=== PATIENT | female | born 1955 | race Caucasian/White ===

== ENCOUNTER → 2016-04-07 | Outpatient (CLI) | payer BC ==
[~2016-04-07] MED LIST: ALBUAER19 INH; ALD2525 PO; CHOL100010 PO; CYAN500S PO; DEXL30CA5 PO; DEXL60CA4 PO; GLC/500 PO; HYDR-5688 PO; HYDR25TA4 PO; INSU1.2I SQ; LOSA1TAB38 PO; LPT/40 PO; MULT-506 PO; NVLGIPEN SQ; NXM/40 PO; POTA10CA28 PO
[2016-04-07 17:17] LABS: BLOOD UREA NITROGEN 17 mg/dl (7-18); BUN/CREATININE RATIO 20.4 (10-20); CALCIUM 9.4 mg/dl (8.5-10.1); CARBON DIOXIDE 23 mmol/L (21-32); CHLORIDE 107 mmol/L (98-107); CREATININE 0.85 mg/dl (0.60-1.20); GLUCOSE 76 mg/dl (70-99); POTASSIUM 3.6 mmol/L (3.5-5.1); SODIUM 142 mmol/L (136-145)
== END | disposition home or self-care (01) ==
LOC: C.LABBFT 12:09
PROVIDERS: ATTEND Nurse Practitioner Adult Health
DX: I10 Essential (primary) hypertension (principal)

== ENCOUNTER → 2016-05-17 | Outpatient (CLI) | payer BC ==
--- NOTE | 2016-05-18 08:01 | MAMMOGRAPHY REPORT ---
BILATERAL DIGITAL SCREENING MAMMOGRAM TOMOSYNTHESIS WITH CAD: 05/17/2016 CLINICAL HISTORY: Routine screening. Patient has no complaints. TECHNIQUE: Breast tomosynthesis in addition to standard 2D mammography was performed. Current study was also evaluated with a Computer Aided Detection (CAD) system. COMPARISON: Comparison is made to exams dated: 05/15/2015 mammogram, 04/12/2013 mammogram, 04/15/2014 ma mmogram, 04/11/2012 mammogram, 04/07/2011 mammogram, and 10/01/2010 mammogram - [facility] enter. BREAST COMPOSITION: There are scattered areas of fibroglandular density in both breasts. FINDINGS: There is evidence of prior reduction mammoplasty. There are stable asymmetries bilaterall y. Scattered benign-appearing round and rim calcifications in the breasts. No suspicious mass, arc hitectural distortion or cluster of suspicious microcalcifications is seen. IMPRESSION: ACR BI-RADS CATEGORY 1: NEGATIVE There is no mammographic evidence of malignancy. A 1 year screening mammogram is recommended. The p atient will receive written notification of the results. Approximately 10% of breast cancers are not detected with mammography. A negative mammographic repor t should not delay biopsy if a clinically suggestive mass is present. Jolene Reynolds M.D. ay/:05/17/2016 22:46:45 [employer] Alarm Mechanic: Inga GUPTA(Andres)(M), [facility] letter sent: Normal 1/2 BI-RADS Code: ACR BI-RADS Category 1: Negative
== END | disposition home or self-care (01) ==
LOC: C.MAMM 09:07
PROVIDERS: ATTEND Internal Medicine
DX: Z12.31 Encounter for screening mammogram for malignant neoplasm of breast (principal)

== ENCOUNTER → 2016-05-20 | Outpatient (CLI) | payer BC ==
[2016-05-20 18:09] LABS: BLOOD UREA NITROGEN 22 mg/dl (7-18); BUN/CREATININE RATIO 25.5 (10-20); CALCIUM 9.3 mg/dl (8.5-10.1); CARBON DIOXIDE 24 mmol/L (21-32); CHLORIDE 107 mmol/L (98-107); CREATININE 0.88 mg/dl (0.60-1.20); GLUCOSE 74 mg/dl (70-99); POTASSIUM 3.5 mmol/L (3.5-5.1); SODIUM 143 mmol/L (136-145)
== END | disposition home or self-care (01) ==
LOC: C.LABBFT 11:50
PROVIDERS: ATTEND Nurse Practitioner Adult Health
DX: I10 Essential (primary) hypertension (principal)

== ENCOUNTER → 2016-07-05 | Outpatient (CLI) | payer BC ==
--- NOTE | 2016-07-05 09:40 | DIAGNOSTIC IMAGING REPORT ---
EXAMINATION: RENAL ULTRASOUND CLINICAL HISTORY: R31.9 [id number] Angiomyolipoma of [id number] COMPARISON STUDY: 06/17/2014 FINDINGS: The right kidney measures 11.1 cm. The left kidney measures 10.9 cm. There is no evidence of hydronephrosis. There is an 11 mm echogenic cortical mass arising from the upper pole the left kidney. This remains unchanged in size. A prior CT scan indicated this represents an angiomyolipoma. No bladder abnormalities are visualized. Bilateral ureteral jets were visualized. 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 07/05/2016 9:38 AM Dictated Date/Time: 07/05/2016 9:36 AM
== END | disposition home or self-care (01) ==
LOC: C.ULTR 08:51
PROVIDERS: ATTEND Urology
DX: D17.71 Benign lipomatous neoplasm of kidney (principal); R31.9 Hematuria, unspecified

== ENCOUNTER → 2016-07-30 | Day surgery (SDC) | payer BC ==
[2016-07-05 13:22] VITALS: Ht 154.9 cm; Wt 96.8 kg
[~2016-07-30] VITALS: Ht 154.9 cm; Wt 96.8 kg
[~2016-07-30] MED LIST changes: -ALD2525 PO; +LIDOCAINE HCL 2% 2 ML VIAL (20MG/ML) ONE; +MIDAZOLAM HCL 1 MG/ML 2ML VIAL ONE; +ONDANSETRON INJ 2 MG/ML 2 ML VIAL ONE; +PROPOFOL IV EMULSION 10 MG/ML 20 ML VIAL IV ONE; +SODIUM CHLORIDE 0.9% 500ML 500 ML IV ONE
[2016-07-30 09:29] VITALS: TEMP 36.7
--- NOTE | 2016-07-30 09:48 | Endo History and Physical ---
History & Physical Date of Service: July 30, 2016. Chief Complaint: SCREENING Referring Physician: DR DEAN History of Present Illness 60 yo CF who presents for screening colonoscopy. Past Surgical History Hx Cardiac Surgery: No Hx Internal Defibrillator: No Hx Pacemaker: No Hx Abdominal Surgery: Yes (VAGINAL POLYP REMOVAL, ) Hx of Implantable Prosthesis: No Hx Post-Op Nausea and Vomiting: No Hx Cancer Surgery: No Hx Thoracic Surgery: No Hx Orthopedic: Yes (RT GANGLION CYST X3, LT BROKEN ANKLE SURGERY WITH HARDWARE , LT KNEE SCOPE) Hx Urinary Tract Surgery: No Family History None Social History Smoking Status: Never Smoker Hx Substance Use: No Hx Alcohol Use: Yes (RARELY) Allergies Coded Allergies: Iodine (Verified Allergy, Severe, "LOST PULSE AND BP FOR 2 MINUTES", ) CONTRAST MEDIA Alendronate (Verified Allergy, Unknown, SEVERE ABDOMINAL PAIN, 07/30/16) Sulfa Drugs (Verified Allergy, Unknown, RASH, 07/30/16) Current Medications Reported Home Medications Medications Dose Route/Sig Max Daily Dose Days Date Category Dose Instructions Hctz (Hydrochlorothiazide) 25 Mg Tab 25 Mg PO QAM 07/05/16 Reported Toujeo Solostar (Insulin Glargine) 300 Unit/Ml Inj 17 Unit SQ QAM 07/05/16 Reported Novolog Flexpen (Insulin Aspart) 100 Units/Ml Inj 1 Dose SQ QID 07/05/16 Reported SLIDING SCALE COVERAGE Cozaar (Losartan Potassium) 100 Mg Tab 50 Mg PO QAM 07/05/16 Reported Lipitor (Atorvastatin) 40 Mg Tab 40 Mg PO HS 11/19/15 Reported Nexium (Esomeprazole Magnesium) 40 Mg Capcr 40 Mg PO QAM 02/07/13 Reported TAKE 1/2 HOUR PRIOR TO BREAKFAST. Multivitamin (Multivitamins) Tab 1 Tab PO QAM 02/07/13 Reported Vitamin D (Cholecalciferol) 1,000 Inter.unit Tab 1,000 Inter.unit PO QAM 02/07/13 Reported Glucophage (Metformin Hcl) 500 Mg Tab 500 Mg PO BID 02/07/13 Reported B-12 Dots (Cyanocobalamin) 500 Mcg Tab 500 Mcg PO QAM 02/07/13 Reported Ventolin Inhaler (Albuterol) Aers 2 Puffs INH Q4 PRN 09/09/11 Reported Vital Signs Weight (Kilograms): 96.82 Height (Feet): 5 Height (Inches): 1 Date Time Temp Pulse Resp B/P Pulse Ox O2 Delivery O2 Flow Rate FiO2 07/30/16 09:29 36.7 68 18 191/88 95 Room Air Physical Exam General Appearance: WD/WN, no apparent distress Respiratory/Chest: Auscultation: breath sounds normal Cardiovascular: Heart Auscultation: RRR Abdomen: Bowel Sounds: normal Inspection & Palpation: soft, non-distended, no tenderness, guarding & rebound Assessment and Plan Assessment: 60 yo CF who presents for screening colonoscopy. Plan: Proceed with colonoscopy.
--- NOTE | 2016-07-30 10:45 | GI REPORT ---
Procedure Date: 07/30/2016 9:52 AM Procedure: Colonoscopy Indications: Screening for colorectal malignant neoplasm Medicines: Monitored Anesthesia Care Complications: No immediate complications. Estimated Blood Loss: Estimated blood loss: none. Procedure: Pre-Anesthesia Assessment: - Prior to the procedure, a History and Physical was performed, and patient medications and allergies were reviewed. The patient's tolerance of previous anesthesia was also reviewed. The risks and benefits of the procedure and the sedation options and risks were discussed with the patient. All questions were answered, and informed consent was obtained. Prior Anticoagulants: The patient has taken no previous anticoagulant or antiplatelet agents. ASA Grade Assessment: II - A patient with mild systemic disease. After reviewing the risks and benefits, the patient was deemed in satisfactory condition to undergo the procedure. After I obtained informed consent, the scope was passed under direct vision. Throughout the procedure, the patient's blood pressure, pulse, and oxygen saturations were monitored continuously. The Scope was introduced through the anus and advanced to the terminal ileum. The colonoscopy was performed without difficulty. The patient tolerated the procedure well. The quality of the bowel preparation was good. The terminal ileum, ileocecal valve, appendiceal orifice, and rectum were photographed. Findings: A 6 mm polyp was found in the ascending colon. The polyp was pedunculated. The polyp was removed with a hot snare. Resection and retrieval were complete. To prevent bleeding after the polypectomy, two hemostatic clips were successfully placed (MR conditional). There was no bleeding at the end of the procedure. Non-bleeding internal hemorrhoids were found during retroflexion. The hemorrhoids were small. Impression: - One 6 mm polyp in the ascending colon, removed with a hot snare. Resected and retrieved. Clips (MR conditional) were placed. - Non-bleeding internal hemorrhoids. Recommendation: - Resume previous diet. - Continue present medications. - Repeat colonoscopy for surveillance based on pathology results. - Return to primary care physician as previously scheduled. Isai Li, DO 07/30/2016 10:44:38 AM This report has been signed electronically. Note Initiated On: 07/30/2016 9:52 AM I attest to the content of the Intraoperative Record and orders documented therein, exceptions below
--- NOTE | 2016-07-30 10:45 | Discharge Instructions ---
Endoscopy Patient Instructions Date / Procedure(s) Performed July 30, 2016. Colonoscopy Allergy Information Coded Allergies: Iodine (Verified Allergy, Severe, "LOST PULSE AND BP FOR 2 MINUTES", ) CONTRAST MEDIA Alendronate (Verified Allergy, Unknown, SEVERE ABDOMINAL PAIN, 07/30/16) Sulfa Drugs (Verified Allergy, Unknown, RASH, 07/30/16) Discharge Date / Findings July 30, 2016. Colon polyp Internal hemorrhoids Medication Instructions OK to resume all medications today as prescribed Reported Home Medications Medications Dose Route/Sig Max Daily Dose Days Date Category Dose Instructions Hctz (Hydrochlorothiazide) 25 Mg Tab 25 Mg PO QAM 07/05/16 Reported Toujeo Solostar (Insulin Glargine) 300 Unit/Ml Inj 17 Unit SQ QAM 07/05/16 Reported Novolog Flexpen (Insulin Aspart) 100 Units/Ml Inj 1 Dose SQ QID 07/05/16 Reported SLIDING SCALE COVERAGE Cozaar (Losartan Potassium) 100 Mg Tab 50 Mg PO QAM 07/05/16 Reported Lipitor (Atorvastatin) 40 Mg Tab 40 Mg PO HS 11/19/15 Reported Nexium (Esomeprazole Magnesium) 40 Mg Capcr 40 Mg PO QAM 02/07/13 Reported TAKE 1/2 HOUR PRIOR TO BREAKFAST. Multivitamin (Multivitamins) Tab 1 Tab PO QAM 02/07/13 Reported Vitamin D (Cholecalciferol) 1,000 Inter.unit Tab 1,000 Inter.unit PO QAM 02/07/13 Reported Glucophage (Metformin Hcl) 500 Mg Tab 500 Mg PO BID 02/07/13 Reported B-12 Dots (Cyanocobalamin) 500 Mcg Tab 500 Mcg PO QAM 02/07/13 Reported Ventolin Inhaler (Albuterol) Aers 2 Puffs INH Q4 PRN 09/09/11 Reported Provider Instructions Activity Restrictions - No exercising or heavy lifting for 24 hours. - Do not drink alcohol the day of the procedure. - Do not drive a car or operate machinery until the day after the procedure. - Do not make any important decisions or sign important papers in 24 hours after the procedure. Following Day: - Return to full activity which may include returning to work/school. Diet Start your diet with liquids and light foods (jello, soup, juice, toast). Then eat your usual diet if not nauseated. Treatment For Common After Affects For mild abdominal pain, bloating, or excessive gas: - Rest - Eat lightly - Lie on right side Follow-Up Information Follow-up with DR DEAN as scheduled Anesthesia Information What You Should Know You have had a procedure that required some medicine to reduce anxiety and discomfort. This treatment is called moderate sedation. After receiving the treatment, you may be sleepy, but you will be able to breathe on your own. The effects of the treatment may last for several hours. Follow these instructions along with Activity/Diet recommendations noted above: * Do NOT do anything where dizziness or clumsiness would be dangerous. * Rest quietly at home today, then you can be up and about tomorrow. * Have a responsible person stay with you the rest of today. * You may have had an I.V. today. If so, you may take the dressing off later today. Recommendations Call your doctor if: * Trouble breathing * Continuous vomiting for more than 24 hours * Temperature above 101 degrees * Severe abdominal pain or bloating * Pain not relieved by pain medicine ordered * There is increased drainage or redness from any incision * A large amount of rectal bleeding greater than 2-3 tablespoons. (If you had a polyp/s removed or have hemorrhoids, a small amount of blood - from the rectum is to be expected.) * You have any unanswered questions or concerns. IN THE EVENT OF A SERIOUS EMERGENCY, GO TO THE NEAREST EMERGENCY ROOM Your discharge instructions were prepared by provider Isai Li. Patient Instructions Signature Page Vero Recinos Patient (or Guardian) Signature/Date: I have read and understand the instructions given to me by my caregivers. Caregiver/RN/Doctor Signature/Date: The above-named patient and/or guardian has received patient instructions on this date. + Original Patient Signature Page (only) stays with chart. Please make copy for patient.
[2016-07-30 11:08] VITALS: BP 144/94; PULSE 62; O2SAT 100
--- NOTE | 2016-07-30 13:41 | Anesthesiology Progress Note ---
Anesthesia Post Op Note Date & Time July 30, 2016 at 13:41 Vital Signs Pain Intensity: 0 Vital Signs Past 12 Hours Date Time Temp Pulse Resp B/P Pulse Ox O2 Delivery O2 Flow Rate FiO2 07/30/16 11:08 62 20 144/94 100 Room Air 07/30/16 10:54 68 18 145/68 99 Room Air 07/30/16 10:39 64 18 113/59 99 Room Air 07/30/16 09:29 36.7 68 18 191/88 95 Room Air Notes Mental Status: alert / awake / arousable, participated in evaluation Pt Amnestic to Procedure: Yes Nausea / Vomiting: adequately controlled Pain: adequately controlled Airway Patency, RR, SpO2: stable & adequate BP & HR: stable & adequate Hydration State: stable & adequate Anesthetic Complications: no major complications apparent
== END | disposition home or self-care (01) ==
LOC: C.GI 08:47
PROVIDERS: ATTEND Internal Medicine
DX: Z12.11 Encounter for screening for malignant neoplasm of colon (principal); D12.2 Benign neoplasm of ascending colon; K64.8 Other hemorrhoids; Z79.4 Long term (current) use of insulin; Z79.899 Other long term (current) drug therapy

== ENCOUNTER → 2016-09-17 | Outpatient (CLI) | payer BC ==
[~2016-09-17] MED LIST changes: -LIDOCAINE HCL 2% 2 ML VIAL (20MG/ML) ONE; -MIDAZOLAM HCL 1 MG/ML 2ML VIAL ONE; -ONDANSETRON INJ 2 MG/ML 2 ML VIAL ONE; -PROPOFOL IV EMULSION 10 MG/ML 20 ML VIAL IV ONE; -SODIUM CHLORIDE 0.9% 500ML 500 ML IV ONE
[2016-09-17 17:22] LABS: HEMATOCRIT 38.5 % (37-47); MEAN CELL VOLUME 88.7 fL (80-100); MEAN CORPUSCULAR HEMOGLOBIN 29.7 pg (25-34); MEAN CORPUSCULAR HGB CONC 33.5 g/dl (32-36); MEAN PLATELET VOLUME 10.4 fL (7.4-10.4); PLATELET COUNT 304 K/uL (130-400); RED BLOOD COUNT 4.34 M/uL (4.2-5.4); WHITE BLOOD COUNT 9.33 K/uL (4.8-10.8)
[2016-09-17 17:52] LABS: ALT/SGPT 29 U/L (12-78); AMYLASE 41 U/L (25-115); AST/SGOT 17 U/L (15-37); BLOOD UREA NITROGEN 26 mg/dl (7-18); BUN/CREATININE RATIO 21.6 (10-20); CALCIUM 9.4 mg/dl (8.5-10.1); CARBON DIOXIDE 31 mmol/L (21-32); CHLORIDE 103 mmol/L (98-107); GLUCOSE 115 mg/dl (70-99); SODIUM 142 mmol/L (136-145)
[2016-09-17 17:54] LABS: ALB/GLOB RATIO 1.1 (0.9-2); ALKALINE PHOSPHATASE 106 U/L (45-117)
== END | disposition home or self-care (01) ==
LOC: C.LAB1850 16:30
PROVIDERS: ATTEND Nurse Practitioner Adult Health
DX: R11.2 Nausea with vomiting, unspecified (principal); E11.9 Type 2 diabetes mellitus without complications; R10.11 Right upper quadrant pain

== ENCOUNTER → 2016-09-29 | Outpatient (CLI) | payer BC ==
--- NOTE | 2016-09-29 09:05 | DIAGNOSTIC IMAGING REPORT ---
GALLBLADDER-ABD LIMITED HISTORY: 60 years Female R11.0 acute nausea COMPARISON: CT abdomen and pelvis 05/09/2013, gallbladder ultrasound 02/26/2014. TECHNIQUE: Multiple real-time sonographic images of the abdominal right upper quadrant were obtained assessing grayscale appearance and color flow. FINDINGS: The imaged pancreas is unremarkable with body and tail secured by bowel gas. The hepatic parenchyma is within normal limits without focal mass identified. No gallbladder wall thickening, shadowing cholelithiasis or pericholecystic fluid collections. Common bile duct is normal, 0.5 cm. The imaged right kidney appears normal without hydronephrosis measuring 10.9 cm. IMPRESSION: Unremarkable right upper quadrant ultrasound without evidence of cholelithiasis, acute cholecystitis or biliary ductal dilatation. The above report was generated using voice recognition software. It may contain grammatical, syntax or spelling errors. Electronically signed by: Fred Rosales M.D. 09/29/2016 9:04 AM Dictated Date/Time: 09/29/2016 9:01 AM
== END | disposition home or self-care (01) ==
LOC: C.ULTR 08:28
PROVIDERS: ATTEND Physician Assistant Medical
DX: R11.0 Nausea (principal)

== ENCOUNTER → 2016-10-22 | Day surgery (SDC) | payer BC ==
[2016-10-11 15:13] VITALS: Ht 154.9 cm; Wt 96.8 kg
[~2016-10-22] VITALS: Ht 154.9 cm; Wt 96.8 kg
[~2016-10-22] MED LIST changes: +LIDOCAINE HCL 2% 2 ML VIAL (20MG/ML) ONE; +PROPOFOL IV EMULSION 10 MG/ML 20 ML VIAL IV ONE; +SODIUM CHLORIDE 0.9% 500ML 500 ML IV ONE
--- NOTE | 2016-10-22 09:25 | Endo History and Physical ---
History & Physical Date of Service: Oct 22, 2016. Chief Complaint: RUQ Abdominal pain Referring Physician: Dr. Cheung History of Present Illness 60 yo CF who presents for EGD secondary to RUQ abdominal pain. Past Surgical History Hx Cardiac Surgery: No Hx Internal Defibrillator: No Hx Pacemaker: No Hx Abdominal Surgery: Yes (VAGINAL POLYP REMOVAL, ) Hx Post-Op Nausea and Vomiting: No Hx Cancer Surgery: No Hx Thoracic Surgery: No Hx Orthopedic: Yes (RT GANGLION CYST X3, LT BROKEN ANKLE SURGERY WITH HARDWARE , LT KNEE SCOPE) Hx Urinary Tract Surgery: No Family History None Social History Smoking Status: Never Smoker Hx Substance Use: No Hx Alcohol Use: Yes (RARELY) Allergies Coded Allergies: Iodine (Verified Allergy, Severe, "LOST PULSE AND BP FOR 2 MINUTES", ) CONTRAST MEDIA Alendronate (Verified Allergy, Unknown, SEVERE ABDOMINAL PAIN, 10/22/16) Sulfa Drugs (Verified Allergy, Unknown, RASH, 10/22/16) Current Medications Reported Home Medications Medications Dose Route/Sig Max Daily Dose Days Date Category Dose Instructions Dexilant (Dexlansoprazole) 30 Mg Cap 1 Tab PO DAILY 10/22/16 Reported Hctz (Hydrochlorothiazide) 25 Mg Tab 25 Mg PO QAM 07/05/16 Reported Toujeo Solostar (Insulin Glargine) 300 Unit/Ml Inj 17 Unit SQ QAM 07/05/16 Reported Novolog Flexpen (Insulin Aspart) 100 Units/Ml Inj 1 Dose SQ QID 07/05/16 Reported SLIDING SCALE COVERAGE Cozaar (Losartan Potassium) 100 Mg Tab 50 Mg PO QAM 07/05/16 Reported Lipitor (Atorvastatin) 40 Mg Tab 40 Mg PO HS 11/19/15 Reported Nexium (Esomeprazole Magnesium) 40 Mg Capcr 40 Mg PO QAM 02/07/13 Reported TAKE 1/2 HOUR PRIOR TO BREAKFAST. Multivitamin (Multivitamins) Tab 1 Tab PO QAM 02/07/13 Reported Vitamin D (Cholecalciferol) 1,000 Inter.unit Tab 1,000 Inter.unit PO QAM 02/07/13 Reported B-12 Dots (Cyanocobalamin) 500 Mcg Tab 500 Mcg PO QAM 02/07/13 Reported Ventolin Inhaler (Albuterol) Aers 2 Puffs INH Q4 PRN 09/09/11 Reported Vital Signs Weight (Kilograms): 96.82 Height (Feet): 5 Height (Inches): 1 Date Time Temp Pulse Resp B/P (MAP) Pulse Ox O2 Delivery O2 Flow Rate FiO2 10/22/16 09:14 36.7 84 18 133/82 (99) 99 Room Air Physical Exam General Appearance: WD/WN, no apparent distress Respiratory/Chest: Auscultation: breath sounds normal Cardiovascular: Heart Auscultation: RRR Abdomen: Bowel Sounds: normal Inspection & Palpation: soft, non-distended, no tenderness, guarding & rebound Assessment and Plan Assessment: 60 yo CF who presents for EGD secondary to RUQ abdominal pain. Plan: Proceed with EGD.
--- NOTE | 2016-10-22 11:37 | Discharge Instructions ---
Endoscopy Patient Instructions Date / Procedure(s) Performed Oct 22, 2016. EGD Allergy Information Coded Allergies: Iodine (Verified Allergy, Severe, "LOST PULSE AND BP FOR 2 MINUTES", ) CONTRAST MEDIA Alendronate (Verified Allergy, Unknown, SEVERE ABDOMINAL PAIN, 10/22/16) Sulfa Drugs (Verified Allergy, Unknown, RASH, 10/22/16) Discharge Date / Findings Oct 22, 2016. Hiatal hernia Gastritis s/p biopsies Medication Instructions OK to resume all medications today as prescribed Reported Home Medications Medications Dose Route/Sig Max Daily Dose Days Date Category Dose Instructions Dexilant (Dexlansoprazole) 30 Mg Cap 1 Tab PO DAILY 10/22/16 Reported Hctz (Hydrochlorothiazide) 25 Mg Tab 25 Mg PO QAM 07/05/16 Reported Toujeo Solostar (Insulin Glargine) 300 Unit/Ml Inj 17 Unit SQ QAM 07/05/16 Reported Novolog Flexpen (Insulin Aspart) 100 Units/Ml Inj 1 Dose SQ QID 07/05/16 Reported SLIDING SCALE COVERAGE Cozaar (Losartan Potassium) 100 Mg Tab 50 Mg PO QAM 07/05/16 Reported Lipitor (Atorvastatin) 40 Mg Tab 40 Mg PO HS 11/19/15 Reported Nexium (Esomeprazole Magnesium) 40 Mg Capcr 40 Mg PO QAM 02/07/13 Reported TAKE 1/2 HOUR PRIOR TO BREAKFAST. Multivitamin (Multivitamins) Tab 1 Tab PO QAM 02/07/13 Reported Vitamin D (Cholecalciferol) 1,000 Inter.unit Tab 1,000 Inter.unit PO QAM 02/07/13 Reported B-12 Dots (Cyanocobalamin) 500 Mcg Tab 500 Mcg PO QAM 02/07/13 Reported Ventolin Inhaler (Albuterol) Aers 2 Puffs INH Q4 PRN 09/09/11 Reported Provider Instructions Activity Restrictions - No exercising or heavy lifting for 24 hours. - Do not drink alcohol the day of the procedure. - Do not drive a car or operate machinery until the day after the procedure. - Do not make any important decisions or sign important papers in 24 hours after the procedure. Following Day: - Return to full activity which may include returning to work/school. Diet Start your diet with liquids and light foods (jello, soup, juice, toast). Then eat your usual diet if not nauseated. Treatment For Common After Affects For mild abdominal pain, bloating, or excessive gas: - Rest - Eat lightly - Lie on right side Follow-Up Information Follow-up with DR. DEAN as scheduled Anesthesia Information What You Should Know You have had a procedure that required some medicine to reduce anxiety and discomfort. This treatment is called moderate sedation. After receiving the treatment, you may be sleepy, but you will be able to breathe on your own. The effects of the treatment may last for several hours. Follow these instructions along with Activity/Diet recommendations noted above: * Do NOT do anything where dizziness or clumsiness would be dangerous. * Rest quietly at home today, then you can be up and about tomorrow. * Have a responsible person stay with you the rest of today. * You may have had an I.V. today. If so, you may take the dressing off later today. Recommendations Call your doctor if: * Trouble breathing * Continuous vomiting for more than 24 hours * Temperature above 101 degrees * Severe abdominal pain or bloating * Pain not relieved by pain medicine ordered * There is increased drainage or redness from any incision * A large amount of rectal bleeding greater than 2-3 tablespoons. (If you had a polyp/s removed or have hemorrhoids, a small amount of blood - from the rectum is to be expected.) * You have any unanswered questions or concerns. IN THE EVENT OF A SERIOUS EMERGENCY, GO TO THE NEAREST EMERGENCY ROOM Your discharge instructions were prepared by provider Isai Li. Patient Instructions Signature Page Vero Recinos Patient (or Guardian) Signature/Date: I have read and understand the instructions given to me by my caregivers. Caregiver/RN/Doctor Signature/Date: The above-named patient and/or guardian has received patient instructions on this date. + Original Patient Signature Page (only) stays with chart. Please make copy for patient.
--- NOTE | 2016-10-22 11:38 | Anesthesiology Progress Note ---
Anesthesia Post Op Note Date & Time Oct 22, 2016 at 11:37 Vital Signs Pain Intensity: 0 Vital Signs Past 12 Hours Date Time Temp Pulse Resp B/P (MAP) Pulse Ox O2 Delivery O2 Flow Rate FiO2 10/22/16 11:32 69 20 127/74 (91) 98 Room Air 10/22/16 11:17 71 20 102/55 (71) 97 Room Air 10/22/16 09:14 36.7 84 18 133/82 (99) 99 Room Air Notes Mental Status: alert / awake / arousable, participated in evaluation Pt Amnestic to Procedure: Yes Nausea / Vomiting: adequately controlled Pain: adequately controlled Airway Patency, RR, SpO2: stable & adequate BP & HR: stable & adequate Hydration State: stable & adequate Anesthetic Complications: no major complications apparent
--- NOTE | 2016-10-22 11:40 | GI REPORT ---
Procedure Date: 10/22/2016 10:58 AM Procedure: Upper GI endoscopy Indications: Abdominal pain in the right upper quadrant Medicines: Monitored Anesthesia Care Complications: No immediate complications. Estimated Blood Loss: Estimated blood loss: none. Procedure: Pre-Anesthesia Assessment: - Prior to the procedure, a History and Physical was performed, and patient medications and allergies were reviewed. The patient's tolerance of previous anesthesia was also reviewed. The risks and benefits of the procedure and the sedation options and risks were discussed with the patient. All questions were answered, and informed consent was obtained. Prior Anticoagulants: The patient has taken no previous anticoagulant or antiplatelet agents. ASA Grade Assessment: II - A patient with mild systemic disease. After reviewing the risks and benefits, the patient was deemed in satisfactory condition to undergo the procedure. After obtaining informed consent, the endoscope was passed under direct vision. Throughout the procedure, the patient's blood pressure, pulse, and oxygen saturations were monitored continuously. The scope was introduced through the mouth, and advanced to the second part of duodenum. The upper GI endoscopy was accomplished without difficulty. The patient tolerated the procedure well. Findings: The esophagus was normal. A small hiatus hernia was present. Localized mild inflammation characterized by erythema was found in the gastric antrum. Biopsies were taken with a cold forceps for histology. The examined duodenum was normal. Impression: - Normal esophagus. - Small hiatus hernia. - Gastritis. Biopsied. - Normal examined duodenum. Recommendation: - Resume previous diet. - Continue present medications. - Await pathology results. - Return to GI office as previously scheduled. Isai iL DO 10/22/2016 11:40:12 AM This report has been signed electronically. Note Initiated On: 10/22/2016 10:58 AM I attest to the content of the Intraoperative Record and orders documented therein, exceptions below
[2016-10-22 11:49] VITALS: BP 136/76; PULSE 66; O2SAT 100
== END | disposition home or self-care (01) ==
LOC: C.GI 08:55
PROVIDERS: ATTEND Internal Medicine
DX: R10.11 Right upper quadrant pain (principal); K29.70 Gastritis, unspecified, without bleeding; J45.909 Unspecified asthma, uncomplicated; G47.33 Obstructive sleep apnea (adult) (pediatric); E11.9 Type 2 diabetes mellitus without complications; E66.9 Obesity, unspecified; K44.9 Diaphragmatic hernia without obstruction or gangrene

== ENCOUNTER → 2016-10-28 | Outpatient (CLI) | payer BC ==
[~2016-10-28] MED LIST changes: -LIDOCAINE HCL 2% 2 ML VIAL (20MG/ML) ONE; -PROPOFOL IV EMULSION 10 MG/ML 20 ML VIAL IV ONE; -SODIUM CHLORIDE 0.9% 500ML 500 ML IV ONE
== END | disposition home or self-care (01) ==
LOC: C.CPL 10:39
PROVIDERS: ATTEND Surgery
DX: R10.11 Right upper quadrant pain (principal)

== ENCOUNTER → 2016-11-01 | Outpatient (CLI) | payer BC ==
[2016-11-01 18:54] LABS: BLOOD UREA NITROGEN 23 mg/dl (7-18); BUN/CREATININE RATIO 22.8 (10-20); CALCIUM 9.2 mg/dl (8.5-10.1); CARBON DIOXIDE 32 mmol/L (21-32); CHLORIDE 105 mmol/L (98-107); GLUCOSE 88 mg/dl (70-99); POTASSIUM 3.3 mmol/L (3.5-5.1); SODIUM 141 mmol/L (136-145)
== END | disposition home or self-care (01) ==
LOC: C.LAB 18:22
PROVIDERS: ATTEND Internal Medicine
DX: I10 Essential (primary) hypertension (principal)

== ENCOUNTER 2016-11-03 05:00 | Observation (INO) | payer BC ==
[2016-10-29 10:30] VITALS: BMI 42.0
[~2016-11-03] VITALS: Ht 154.9 cm; Wt 100.0 kg
[2016-11-03] VITALS (10 sets, daily range): BP systolic 115–160; BP diastolic 67–86; PULSE 50–81; TEMP 36.3–37; O2SAT 94–100; Ht 154.9 cm; Wt 100.0 kg
[~2016-11-03 05:00] MED LIST changes: -DEXL30CA5 PO; -HYDR-5688 PO; -NXM/40 PO; -POTA10CA28 PO
[2016-11-03] MEDS ORDERED: CEFUROXIME IV 1,500 MG in DEXTROSE 5% 100ML IV SCH (06:00)
[2016-11-03] MEDS ORDERED: LACTATED RINGER'S 1000ML 1,000 ML IV SCH ×2 (06:00→07:49)
[2016-11-03] MEDS ORDERED: ROCURONIUM BROMIDE 10 MG/ML 5 ML VIAL IV ONE (06:34)
[2016-11-03] MEDS ORDERED: PROPOFOL IV EMULSION 10 MG/ML 20 ML VIAL IV ONE (06:34)
[2016-11-03] MEDS ORDERED: NEOSTIGMINE METHYLSULFATE 5 MG/5 ML SYR ONE (06:34)
[2016-11-03] MEDS ORDERED: GLYCOPYRROLATE INJ 0.2 MG/ML VIAL ONE (06:34)
[2016-11-03] MEDS ORDERED: LIDOCAINE HCL 2% 2 ML VIAL (20MG/ML) ONE (06:34)
[2016-11-03] MEDS ORDERED: FENTANYL CITRATE INJ 50 MCG/1 ML 2 ML VIAL ONE ×3 (06:35→08:10)
[2016-11-03] MEDS ORDERED: MIDAZOLAM HCL 1 MG/ML 2ML VIAL ONE (06:35)
[2016-11-03] MEDS ORDERED: ONDANSETRON INJ 2 MG/ML 2 ML VIAL ONE (06:36)
[2016-11-03] MEDS ORDERED: DEXAMETHASONE SOD INJ 4 MG/ML VIAL ONE (06:36)
[2016-11-03] MEDS ORDERED: POTA10CA28 PO (06:37)
[2016-11-03] MEDS ORDERED: CONRAY 60% 50 ML VIAL ONE (06:43)
[2016-11-03] MEDS ORDERED: BUPIVACAINE 0.5 % 5 MG/1 ML MPF 30ML VIAL ONE (06:43)
--- NOTE | 2016-11-03 06:47 | History & Physical Bridge Note ---
H&P Re-Evaluation Bridge Note: I have examined the patient, reviewed the History & Physical and in the interval since the performance of the History & Physical I have noted the following changes of clinical significance: No changes noted
[2016-11-03] MEDS ORDERED: ONDANSETRON INJ 2 MG/ML 2 ML VIAL IV PRN ×2 (07:45→08:00)
[2016-11-03] MEDS ORDERED: LABETALOL HCL IV 5 MG/ML 20ML IV PRN (07:45)
[2016-11-03] MEDS ORDERED: EpHEDrine SULFATE INJ 50 MG/ML AMP IV PRN (07:45)
[2016-11-03] MEDS ORDERED: PROMETHAZINE HCL INJ 12.5 MG in SODIUM CHLORIDE 0.9% 50ML 50 ML IV PRN ×2 (07:45→09:30)
[2016-11-03] MEDS ORDERED: FENTANYL CITRATE INJ 50 MCG/1 ML 2 ML VIAL IV PRN (07:45)
[2016-11-03] MEDS ORDERED: ATROPINE SULFATE 0.1 MG/ML 5ML SYR IV PRN (07:45)
[2016-11-03] MEDS ORDERED: FLUMAZENIL 0.1 MG/1 ML 10 ML VIAL IV PRN (07:45)
[2016-11-03] MEDS ORDERED: NALOXONE HCL 0.4 MG/1 ML VIAL/CARP IV PRN (07:45)
--- NOTE | 2016-11-03 07:49 | [facility] Operative Report ---
Operative Report Operative Date Nov 03, 2016. Pre-Operative Diagnosis Biliary Colic Post-Operative Diagnosis same as pre-operative Procedure(s) Performed Laparoscopic Cholecystectomy Surgeon Dr. Yassine Nava Shrimp Picker Surgeon(s) Shubham Levine PA-C Estimated Blood Loss 5ml Findings very small cystic duct Specimens A: Gallbladder and contents Anesthesia gen Complication(s) None Disposition Recovery Room / PACU I attest to the content of the Intraoperative Record and any orders documented therein. Any exceptions are noted below.
[2016-11-03] MEDS ORDERED: ALBUTEROL HFA 8 GM INHALER INH PRN (08:00)
[2016-11-03] MEDS ORDERED: MoRPHine SULFATE 2 MG/ML CARP IV PRN (08:00)
[2016-11-03] MEDS ORDERED: HYDROCODONE/ACETAMOPHEN 5/325MG TAB PO PRN ×2 (08:00)
[2016-11-03] MEDS ORDERED: MoRPHine SULFATE 4 MG/ML 1 ML CARP\\VIAL IV PRN (08:00)
[2016-11-03] MEDS ORDERED: PROMETHAZINE HCL INJ 25 MG in SODIUM CHLORIDE 0.9% 50ML 50 ML IV PRN (08:00)
--- NOTE | 2016-11-03 08:01 | OPERATIVE REPORT ---
DATE OF OPERATION: 11/03/2016 NAME OF OPERATION: Laparoscopic cholecystectomy. PREOPERATIVE DIAGNOSIS: Biliary colic. POSTOPERATIVE DIAGNOSIS: Same. STAFF SURGEON: Dr. Nava. PROGRAM PROJECT MANAGER: Logan Levine PA-C. ANESTHESIA: General. PROCEDURE: The patient was brought in the operating room and placed on the operating table in supine position. Her abdomen was prepped and draped in usual fashion. Pneumatic stockings and orogastric tube were placed. Using 0.5% plain Marcaine all incisions were anesthetized. Incision was made above the umbilicus, carrying dissection down to the fascia, placing a Veress needle producing pneumoperitoneum. An 11 mm port was placed at the umbilicus. Then under visualization, three 5 mm ports were placed, 1 cephalad and 2 laterally. Gallbladder was grasped and retracted. Dissection was carried out at the senthil hepatis identifying a very small narrow cystic duct which was clipped and transected. Cystic artery identified, clipped and transected, then the gallbladder dissected away from the liver bed in the usual fashion. After appropriate hemostasis and irrigation, the gallbladder was placed in an Endobag removed through the umbilical site. All ports were then removed. The umbilical fascia closed using interrupted 0 Vicryl suture. Subcutaneous tissue reapproximated using 2-0 plain catgut suture then the skin reapproximated using subcuticular 4-0 Monocryl and Dermabond. The patient was transferred to recovery room in stable condition. I attest to the content of the Intraoperative Record and any orders documented therein. Any exception s are noted below.
[2016-11-03] MEDS ORDERED: IV FLUIDS COMPLETED PRN (08:30)
--- NOTE | 2016-11-03 08:53 | Anesthesiology Progress Note ---
Anesthesia Post Op Note Date & Time Nov 03, 2016 at 08:53 Vital Signs Pain Intensity: 2 Vital Signs Past 12 Hours Date Time Temp Pulse Resp B/P (MAP) Pulse Ox O2 Delivery O2 Flow Rate FiO2 11/03/16 08:46 144/76 11/03/16 08:42 50 12 11/03/16 08:42 51 12 100 11/03/16 08:41 135/72 11/03/16 08:37 50 15 11/03/16 08:37 49 15 100 11/03/16 08:36 166/75 11/03/16 08:33 63 18 98 11/03/16 08:33 62 18 11/03/16 08:31 36.4 11/03/16 08:31 147/85 11/03/16 08:28 53 16 100 11/03/16 08:28 54 16 11/03/16 08:27 63 15 11/03/16 08:27 64 15 96 11/03/16 08:26 166/81 11/03/16 08:22 52 13 100 11/03/16 08:22 52 13 11/03/16 08:21 140/67 11/03/16 08:17 55 16 100 11/03/16 08:17 55 16 11/03/16 08:16 164/82 11/03/16 08:12 60 18 100 11/03/16 08:12 60 18 11/03/16 08:11 151/79 11/03/16 08:07 58 16 100 11/03/16 08:07 59 16 11/03/16 08:06 144/79 11/03/16 08:04 61 17 11/03/16 08:04 61 17 100 11/03/16 08:01 142/76 11/03/16 07:59 64 20 100 11/03/16 07:59 64 20 11/03/16 07:56 156/86 11/03/16 07:55 162/84 11/03/16 07:54 80 13 11/03/16 07:54 36.5 86 18 156/86 100 Mask 10 11/03/16 07:54 80 13 100 11/03/16 05:33 37.0 65 18 160/86 (110) 97 Room Air Notes Mental Status: alert / awake / arousable, participated in evaluation Pt Amnestic to Procedure: Yes Nausea / Vomiting: adequately controlled Pain: adequately controlled Airway Patency, RR, SpO2: stable & adequate BP & HR: stable & adequate Hydration State: stable & adequate Anesthetic Complications: no major complications apparent
[2016-11-03] MEDS ORDERED: HYDR-5688 PO (09:36)
--- NOTE | 2016-11-03 09:38 | Discharge Instructions ---
Discharge Instructions Date of Service Nov 03, 2016. Admission Reason for Admission: Right Upper Quadrant Abdominal Pain, Diabetes Insu Discharge Discharge Diagnosis / Problem: biliary colic Discharge Goals Goal(s): Decrease discomfort, Improve function, Improve disease control Activity Recommendations Activity Limitations: as noted below Lifting Limitations: no more than 25 pounds Exercise/Sports Limitations: until after follow-up appointment May Resume Sexual Activity: when tolerated Shower/Bathe: tomorrow Driving or Machine Use: resume 3 days after discharge SPECIAL CARE INSTRUCTIONS: * Cover incisions and change daily for comfort/drainage.May leave uncovered with dermabond Avoid constipation- may use Senokot S and Milk of magnesia twice daily as directed on the package * May use ibuprofen for pain as tolerated. * Expect some swelling and bruising. Call your doctor if: * Temperature above 101 degrees * Pain not relieved by pain medicine ordered * There is increased drainage or redness from any incision * You have any unanswered questions or concerns [phone]. FOLLOW UP VISIT: If not already scheduled, please call the office for a follow-up visit. for 1-2 weeks- checkup- no sutures to remove OFFICE PHONE NUMBER: Dr. Nava Office . Current Hospital Diet Patient's current hospital diet: Diabetes Type 2 Diet Discharge Diet Recommended Diet: Diabetes Type 2 Diet Procedures Procedures Performed: Laparoscopic Cholecystectomy Pending Studies Studies pending at discharge: no Medical Emergencies . Who to Call and When: Medical Emergencies: If at any time you feel your situation is an emergency, please call 911 immediately. . Non-Emergent Contact Non-Emergency issues call your: Primary Care Provider, Surgeon . "Provider Documentation" section prepared by Yassine Nava. . VTE Core Measure Inpt VTE Proph given/why not?: SCD's
[2016-11-03] MEDS: HYDROCHLOROTHIAZIDE 25 MG TAB PO SCH (09:58)
[2016-11-03] MEDS: LOSARTAN POTASSIUM 50 MG TAB PO SCH (09:58)
--- NOTE | 2016-11-03 11:13 | Medical Consult ---
Consultation Date of Consultation: Nov 03, 2016. Attending Physician: Yassine Nava M.D. Reason for Consultation: Medical Management History of Present Illness This is a 60 yo F with PMHx of DM II, diabetic neuropathy, HTN, HLD, morbid obesity, JAQUAN, GERD, internal hemmorrhoids, who presented with RUQ pain and now s/p laproscopic cholecystectomy by Dr. Nava on 11/03. She is awake and alert laying in bed when I came to examine her. She currently has minimal pain, with complaints of feeling bloated. She does has been up and walked to the bathroom twice since being up on the floor and reports feeling and increased need to urinate since surgery. She denies any burning, dysuria, or hematuria. She has been able to eat an early lunch without difficulty. Her bowels last moved yesterday, but she reports typically her bowels move every 3-4 days. She has no other acute complaints. Past Medical/Surgical History DM II diabetic neuropathy HTN HLD morbid obesity with BMI= 41.7 JAQUAN GERD internal hemorrhoids Social History Smoking Status: Never Smoker Smokeless Tobacco Use: No Alcohol Use: none Drug Use: none Marital Status: Occupation Status: employed Allergies Coded Allergies: Iodinated Diagnostic Agents (Verified Allergy, Severe, ANAPHYLAXIS, ) Iodine (Verified Allergy, Severe, "LOST PULSE AND BP FOR 2 MINUTES", ) IV CONTRAST MEDIA PT NOT SURE IF ALLERGIC TO TOPICAL IODINE Sulfa Antibiotics (Verified Allergy, Mild, RASH, 11/03/16) Shellfish Allergy (Verified Allergy, Unknown, WAS TOLD NEVER TO EAT THIS BECAUSE OF IODINE REACTION, 11/03/16) Alendronate (Verified Adverse Reaction, Unknown, SEVERE ABDOMINAL PAIN, ) Current Inpatient Medications Current Inpatient Medications Medications (Trade) Dose Ordered Sig/Dayron Route Start Time Stop Time Status Last Admin Dose Admin Fentanyl Citrate (Fentanyl Inj) 25 mcg Q5M PRN IV 11/03/16 07:45 11/03/16 12:45 Naloxone HCl (Narcan Inj) 0.2 mg Q2M PRN IV 11/03/16 07:45 11/03/16 12:45 Flumazenil (Romazicon Inj) 0.2 mg Q2M PRN IV 11/03/16 07:45 11/03/16 12:45 Ondansetron HCl (Zofran Inj) 4 mg ONE PRN IV 11/03/16 07:45 11/03/16 12:45 Promethazine HCl 12.5 mg/Sodium Chloride 50.5 ml @ 202 mls/hr ONE PRN IV 11/03/16 07:45 11/03/16 12:45 Labetalol HCl (Normodyne IV) 5 mg Q5M PRN IV 11/03/16 07:45 11/03/16 12:45 Ephedrine Sulfate (EpHEDrine SULFATE INJ) 5 mg Q5M PRN IV 11/03/16 07:45 11/03/16 12:45 Atropine Sulfate (Atropine Sulfate 0.1MG/Ml Inj) 0.5 mg Q1M PRN IV 11/03/16 07:45 11/03/16 12:45 Albuterol (Ventolin Hfa Inhaler) 2 puffs Q4 PRN INH 11/03/16 08:00 12/03/16 07:59 Atorvastatin Calcium (Lipitor Tab) 40 mg HS PO 11/03/16 21:00 12/03/16 20:59 Hydrochlorothiazide (Hydrochlorothiazide Tab) 25 mg QAM PO 11/03/16 09:00 12/03/16 08:59 11/03/16 09:58 25 MG Losartan Potassium (coZAAR TAB) 50 mg QAM PO 11/03/16 09:00 12/03/16 08:59 11/03/16 09:58 50 MG Lactated Ringer's 1,000 ml @ 50 mls/hr Q20H IV 11/03/16 07:49 11/03/16 13:00 11/03/16 09:58 50 MLS/HR Cefuroxime Sodium 1500 mg/Dextrose 115 ml @ 200 mls/hr Q8 IV 11/03/16 14:00 11/04/16 06:00 Acetaminophen/ Hydrocodone Bitart ([place] 5/325 Tab) 1 tab Q4 PRN PO 11/03/16 08:00 11/17/16 07:59 Acetaminophen/ Hydrocodone Bitart ([place] 5/325 Tab) 2 tab Q4 PRN PO 11/03/16 08:00 11/17/16 07:59 Morphine Sulfate (MoRPHine SULFATE INJ) 2 mg Q4H PRN IV 11/03/16 08:00 11/17/16 07:59 Morphine Sulfate (MoRPHine SULFATE INJ) 4 mg Q4H PRN IV 11/03/16 08:00 11/17/16 07:59 Promethazine HCl 25 mg/Sodium Chloride 51 ml @ 204 mls/hr Q6H PRN IV 11/03/16 08:00 12/03/16 07:59 Ondansetron HCl (Zofran Inj) 4 mg Q6H PRN IV 11/03/16 08:00 12/03/16 07:59 Miscellaneous (Iv Fluids Completed) 1 ea PRN PRN N/A 11/03/16 08:30 11/03/17 08:29 Promethazine HCl 12.5 mg/Sodium Chloride 50.5 ml @ 204 mls/hr Q6H PRN IV 11/03/16 09:30 12/03/16 09:29 Review of Systems Constitutional: No fever, No chills, No sweats Eyes: No redness, No diplopia ENT: No sore throat, No trouble swallowing Respiratory: No cough, No shortness of breath, No dyspnea on exertion, No dyspnea at rest Cardiovascular: No chest pain, No palpitations Abdomen: + pain (see HPI), No nausea, No vomiting Musculoskeletal: No joint pain, No swelling, No calf pain Genitourinary - Female: + urinary frequency, No dysuria, No urinary incontinence, No hematuria Neurologic: No weakness, No numbness/tingling Endocrine: No fatigue Integumentary: No rash, No itch Physical Exam Date Time Temp Pulse Resp B/P (MAP) Pulse Ox O2 Delivery O2 Flow Rate FiO2 11/03/16 10:10 70 16 128/85 (99) 95 Room Air 11/03/16 09:42 50 16 128/82 (97) 98 Nasal Cannula 2.0 11/03/16 09:10 100 Nasal Cannula 2.0 11/03/16 09:10 36.3 53 18 129/84 (99) 100 Nasal Cannula 2.0 11/03/16 09:10 Nasal Cannula 2.0 11/03/16 08:57 51 16 99 11/03/16 08:57 53 16 11/03/16 08:56 139/75 11/03/16 08:52 53 17 98 11/03/16 08:52 55 17 11/03/16 08:51 151/75 11/03/16 08:47 54 15 99 11/03/16 08:47 54 15 11/03/16 08:46 144/76 11/03/16 08:42 50 12 11/03/16 08:42 51 12 100 11/03/16 08:41 135/72 11/03/16 08:37 50 15 11/03/16 08:37 49 15 100 11/03/16 08:36 166/75 11/03/16 08:33 63 18 98 11/03/16 08:33 62 18 11/03/16 08:31 36.4 11/03/16 08:31 147/85 11/03/16 08:28 53 16 100 11/03/16 08:28 54 16 11/03/16 08:27 63 15 11/03/16 08:27 64 15 96 11/03/16 08:26 166/81 11/03/16 08:22 52 13 100 11/03/16 08:22 52 13 11/03/16 08:21 140/67 11/03/16 08:17 55 16 100 11/03/16 08:17 55 16 11/03/16 08:16 164/82 11/03/16 08:12 60 18 100 11/03/16 08:12 60 18 11/03/16 08:11 151/79 11/03/16 08:07 58 16 100 11/03/16 08:07 59 16 11/03/16 08:06 144/79 11/03/16 08:04 61 17 11/03/16 08:04 61 17 100 11/03/16 08:01 142/76 11/03/16 07:59 64 20 100 11/03/16 07:59 64 20 11/03/16 07:56 156/86 11/03/16 07:55 162/84 11/03/16 07:54 80 13 11/03/16 07:54 36.5 86 18 156/86 100 Mask 10 11/03/16 07:54 80 13 100 11/03/16 05:33 37.0 65 18 160/86 (110) 97 Room Air General Appearance: WD/WN, no apparent distress, + obese Head: normocephalic, atraumatic Eyes: PERRL, EOMI ENT: hearing grossly normal, pharynx normal Neck: supple, thyroid normal Respiratory/Chest: lungs clear, normal breath sounds, no respiratory distress, no accessory muscle use Cardiovascular: regular rate, rhythm, no murmur, normal peripheral pulses Abdomen/GI: normal bowel sounds, non tender, soft, + pertinent finding (4 abdominal incisions s/p lap myla are glued shut, appear intact, no surrounding erythema. Minimal tenderness with palaption, + mild distension.) Back: normal inspection Extremities/Musculoskelatal: normal inspection, no calf tenderness Neurologic/Psych: alert, normal mood/affect, oriented x 3 Skin: normal color, warm/dry Laboratory Results Last 24 Hours Test 11/03/16 05:28 11/03/16 08:08 11/03/16 10:19 Bedside Glucose 109 mg/dl 170 mg/dl Assessment & Plan 60 yo F with PMHx of DM II, diabetic neuropathy, HTN, HLD, morbid obesity, JAQUAN, GERD, internal hemmorrhoids, who presented with RUQ pain and now s/p laproscopic cholecystectomy by Dr. Nava on 11/03. S/p Lap Myla - Pain management with [place] per primary team - Will order a bowel regimen as pt does have hx of constipation, along with narcotic administration for the above. - PT/OT ordered - Tolerating diet without difficulty, not passing gas or BM yet. - Will stop fluids with increase urination and tolerating good oral intake. DM II - NARROW [employer]ER takes Toujeo 17 U QAM - will convert this to lantus here- Give 14 units now as this is ~ 80% of the first dose, then can give 17 U Lantus tomorrow morning. She received dexamethasone prior to surgery so likely to see glucose reflect steroid administration. - Will follow ISS with accuchecks- the patient uses ISS at home as well and glucose runs between 120-140. - Diabetic diet/HH diet. HTN - Continue losartan 50 mg QAM and HCTZ 50 mg QAM as her home dosing - BP appears to be stable currently HLD - Continue atorvastatin 40 mg QHS, diet controlled GERD - GI ppx with protonix DVT ppx: chemical anticoagulation was on hold for surgery, teds, scds, ambulatory CODE STATUS: FULL CODE Disposition: From home, discharge likely within 1 day Thank you for allowing us to participate in the care of Mrs. Recinos. Please do not hesitate to call with questions or concerns.
[2016-11-03] MEDS ORDERED: GLUCAGON FOR INJ 1 MG VIAL SQ PRN (12:45)
[2016-11-03] MEDS ORDERED: BISACODYL 5 MG TABEC PO PRN (12:45)
[2016-11-03] MEDS ORDERED: BISACODYL 10 MG SUPP PR PRN (12:45)
[2016-11-03] MEDS ORDERED: DEXTROSE 50% 50 ML SYR IV PRN (12:45)
[2016-11-03] MEDS ORDERED: GLUCOSE 10 TABS/TUBE PO PRN (12:45)
[2016-11-03] MEDS ORDERED: GLUCOSE 40% GEL 15 GM TUBE PO PRN (12:45)
[2016-11-03] MEDS ORDERED: INSULIN GLARGINE SOLOSTAR 100 UNITS/ML 3 ML PEN SC ONE (13:00)
[2016-11-03] MEDS ORDERED: INSULIN ASPART 100 UNITS/ML 3 ML PEN SC ONE (13:00)
[2016-11-03] MEDS: CEFUROXIME IV 1,500 MG in DEXTROSE 5% 100ML 100 ML IV SCH ×2 (14:14→21:26)
[2016-11-03] MEDS ORDERED: PNEUMOCOCCAL POLYSACCHARIDES 25 MCG/0.5 ML VIAL/SYR IM. ONE (14:15)
[2016-11-03] MEDS ORDERED: PNEUMOCOCCAL ADMINISTRATION CHARGE ONE (14:15)
[2016-11-03] MEDS: INSULIN ASPART 100 UNITS/ML 3 ML PEN SC SCH ×2 (18:12→20:53)
[2016-11-03] MEDS ORDERED: ATORVASTATIN 40 MG TAB PO SCH (21:00)
[2016-11-04 03:18] VITALS: BP 119/65; PULSE 63; TEMP 36.6; O2SAT 95
[2016-11-04] MEDS: CEFUROXIME IV 1,500 MG in DEXTROSE 5% 100ML 100 ML IV SCH (05:51)
[2016-11-04 07:45] VITALS: BP 132/74; PULSE 64; TEMP 36.5; O2SAT 94
--- NOTE | 2016-11-04 07:54 | DISCHARGE SUMMARY ---
DATE OF DISCHARGE: 11/04/2016 PRINCIPAL DIAGNOSIS: Biliary colic. PROCEDURES: The patient underwent laparoscopic cholecystectomy. HISTORY OF PRESENT ILLNESS: The patient is a 60-year-old female with recurrent right upper quadrant abdominal pain which has become more frequent. HOSPITAL COURSE: The patient was brought in the hospital on 11/03/2016 where she underwent laparoscopic cholecystectomy. She tolerated the procedure very well and has done well overnight and is felt stable for discharge home to be followed in the surgical clinic within 1-2 weeks.
[2016-11-04] MEDS: LOSARTAN POTASSIUM 50 MG TAB PO SCH (08:25)
[2016-11-04] MEDS: HYDROCHLOROTHIAZIDE 25 MG TAB PO SCH (08:25)
[2016-11-04] MEDS: INSULIN ASPART 100 UNITS/ML 3 ML PEN SC SCH (08:29)
[2016-11-04] MEDS ORDERED: MAGNESIUM HYDROXIDE SUSP 30 ML UDC PO SCH (09:00)
[2016-11-04] MEDS ORDERED: POLYETHYLENE (MIRALAX) 17 GM PACK PO SCH (09:00)
[2016-11-04] MEDS ORDERED: DOCUSATE SODIUM/SENNA 50/8.6MG TAB PO SCH (09:00)
[2016-11-04] MEDS ORDERED: INSULIN GLARGINE SOLOSTAR 100 UNITS/ML 3 ML PEN SC SCH (09:00)
--- NOTE | 2016-11-04 09:03 | Anesthesiology Progress Note ---
Anesthesia Post Op Note Date & Time Nov 04, 2016 at 09:03 Vital Signs Pain Intensity: 2 Vital Signs Past 12 Hours Date Time Temp Pulse Resp B/P (MAP) Pulse Ox O2 Delivery O2 Flow Rate FiO2 11/04/16 07:45 94 Room Air 11/04/16 07:45 36.5 64 16 132/74 (93) 94 Room Air 11/04/16 07:32 Room Air 11/04/16 03:18 36.6 63 14 119/65 (83) 95 Room Air 11/03/16 23:45 Room Air 11/03/16 23:39 36.4 64 14 121/67 (85) 97 Room Air Notes Mental Status: alert / awake / arousable Pt Amnestic to Procedure: Yes Nausea / Vomiting: adequately controlled Pain: adequately controlled Airway Patency, RR, SpO2: stable & adequate BP & HR: stable & adequate Hydration State: stable & adequate pt c/o new cold sore;
[2016-11-04 09:26] VITALS: BP 132/74; PULSE 64; TEMP 36.5; O2SAT 94
== END 2016-11-04 10:41 | disposition home or self-care (01) ==
LOC: C.ACU 05:00 → C.MSN 07:54 → ENRESERV 08:47
PROVIDERS: ADMIT Surgery; ATTEND Surgery
DX: R10.11 Right upper quadrant pain (principal); E11.40 Type 2 diabetes mellitus with diabetic neuropathy, unspecified; E78.5 Hyperlipidemia, unspecified; I10 Essential (primary) hypertension; Z87.442 Personal history of urinary calculi; E66.9 Obesity, unspecified; Z79.4 Long term (current) use of insulin; K21.9 Gastro-esophageal reflux disease without esophagitis; Z87.440 Personal history of urinary (tract) infections; Z90.89 Acquired absence of other organs; Z80.51 Family history of malignant neoplasm of kidney; Z83.3 Family history of diabetes mellitus; E78.00 Pure hypercholesterolemia, unspecified; J45.909 Unspecified asthma, uncomplicated; M19.90 Unspecified osteoarthritis, unspecified site; E66.01 Morbid (severe) obesity due to excess calories; Z79.84 Long term (current) use of oral hypoglycemic drugs; G47.33 Obstructive sleep apnea (adult) (pediatric); Z98.51 Tubal ligation status

== ENCOUNTER → 2016-12-09 | Outpatient (CLI) | payer BC ==
[~2016-12-09] MED LIST changes: +HYDR-5688 PO; +POTA10CA28 PO
[2016-12-09 12:24] LABS: ALT/SGPT 20 U/L (12-78); AST/SGOT 16 U/L (15-37); BLOOD UREA NITROGEN 20 mg/dl (7-18); BUN/CREATININE RATIO 22.8 (10-20); CALCIUM 9.6 mg/dl (8.5-10.1); CARBON DIOXIDE 28 mmol/L (21-32); CHLORIDE 103 mmol/L (98-107); CHOLESTEROL 179 mg/dl (0-200); CREATININE 0.89 mg/dl (0.60-1.20); GLUCOSE 112 mg/dl (70-99); POTASSIUM 3.8 mmol/L (3.5-5.1); SODIUM 139 mmol/L (136-145); TRIGLYCERIDES 87 mg/dl (0-150); VERY LOW DENSITY LIPOPROT CALC 17 mg/dl
[2016-12-09 12:29] LABS: ESTIMATED AVERAGE GLUCOSE 120 mg/dl; HA1C FLAG Normal (Normal)
[2016-12-09 12:32] LABS: ALKALINE PHOSPHATASE 128 U/L (45-117); CHOLESTEROL/HDL RATIO 2.2; HDL CHOLESTEROL 82 mg/dl; LDL CHOLESTEROL CALCULATED 80 mg/dl
== END | disposition home or self-care (01) ==
LOC: C.LABBFT 09:59
PROVIDERS: ATTEND Nurse Practitioner Adult Health
DX: E11.9 Type 2 diabetes mellitus without complications (principal); Z79.4 Long term (current) use of insulin

== ENCOUNTER → 2016-12-10 | Outpatient (CLI) | payer BC | END | disposition home or self-care (01) | LOC: C.LABBFT 12:20 | PROVIDERS: ATTEND Nurse Practitioner Adult Health | DX: E11.9 Type 2 diabetes mellitus without complications (principal); Z79.4 Long term (current) use of insulin ==

== ENCOUNTER → 2017-01-04 | Outpatient (CLI) | payer BC | END | disposition home or self-care (01) | LOC: C.MAMM 13:05 | PROVIDERS: ATTEND Internal Medicine | DX: M85.80 Other specified disorders of bone density and structure, unspecified site (principal) ==

== ENCOUNTER → 2017-03-30 | Outpatient (CLI) | payer BC ==
[2017-03-30 17:40] LABS: ALBUMIN 3.6 gm/dl (3.4-5.0); ALT/SGPT 25 U/L (12-78); AST/SGOT 21 U/L (15-37); BLOOD UREA NITROGEN 20 mg/dl (7-18); CALCIUM 9.5 mg/dl (8.5-10.1); CARBON DIOXIDE 31 mmol/L (21-32); CREATININE 0.97 mg/dl (0.60-1.20); GLUCOSE 151 mg/dl (70-99); POTASSIUM 3.4 mmol/L (3.5-5.1); SODIUM 139 mmol/L (136-145)
[2017-03-30 17:42] LABS: ALKALINE PHOSPHATASE 111 U/L (45-117); TOTAL PROTEIN 7.1 gm/dl (6.4-8.2)
[2017-03-31 06:17] LABS: HEMOGLOBIN A1C 5.9 % (4.5-5.6)
== END | disposition home or self-care (01) ==
LOC: C.LABBFT 11:51
PROVIDERS: ATTEND Nurse Practitioner Adult Health
DX: E11.9 Type 2 diabetes mellitus without complications (principal); N76.0 Acute vaginitis

== ENCOUNTER → 2017-04-27 | Outpatient (CLI) | payer BC ==
--- NOTE | 2017-04-27 12:04 | DIAGNOSTIC IMAGING REPORT ---
RIGHT POPLITEAL ULTRASOUND CLINICAL HISTORY: Right popliteal cyst. COMPARISON STUDY: No previous studies for comparison. FINDINGS: Targeted sonography of the right popliteal fossa demonstrated no popliteal cyst, mass or other sonographic abnormality. The right popliteal vein was patent. IMPRESSION: No sonographic abnormality within the right popliteal cyst fossa. No right popliteal cyst. Electronically signed by: Cirilo Jackson M.D. 04/27/2017 12:03 PM Dictated Date/Time: 04/27/2017 12:02 PM
== END ==
LOC: C.ULTR 11:13
PROVIDERS: ATTEND Internal Medicine
DX: M71.21 Synovial cyst of popliteal space [Baker], right knee (principal)

== ENCOUNTER → 2017-05-19 | Outpatient (CLI) | payer BC ==
[~2017-05-19] MED LIST changes: -HYDR-5688 PO
--- NOTE | 2017-05-19 15:07 | MAMMOGRAPHY REPORT ---
BILATERAL DIGITAL SCREENING MAMMOGRAM TOMOSYNTHESIS WITH CAD: 05/19/2017 CLINICAL HISTORY: Routine screening. Patient has no complaints. TECHNIQUE: Breast tomosynthesis in addition to standard 2D mammography was performed. Current study was also evaluated with a Computer Aided Detection (CAD) system. COMPARISON: Comparison is made to exams dated: 05/17/2016 mammogram, 05/15/2015 mammogram, 04/15/2014 mamm ogram, 04/12/2013 mammogram, 04/11/2012 mammogram, and 09/25/2010 mammogram - [facility] er. BREAST COMPOSITION: There are scattered areas of fibroglandular density in both breasts. FINDINGS: No suspicious masses, calcifications, or areas of architectural distortion are noted in ei ther breast. There has been no significant interval change compared to prior exams. Scattered bilater al benign-appearing calcifications are not significantly changed. Bilateral asymmetries are stable c ompared to prior exams. IMPRESSION: ACR BI-RADS CATEGORY 2: BENIGN There is no mammographic evidence of malignancy. A 1 year screening mammogram is recommended. The pa tient will receive written notification of the results. Approximately 10% of breast cancers are not detected with mammography. A negative mammographic report should not delay biopsy if a clinically suggestive mass is present. Maureen Shah M.D. /:05/19/2017 13:27:19 [employer]: Inga Garrett, [facility] letter sent: Normal 1/2 BI-RADS Code: ACR BI-RADS Category 2: Benign
== END | disposition home or self-care (01) ==
LOC: C.MAMM 10:15
PROVIDERS: ATTEND Obstetrics & Gynecology
DX: Z12.31 Encounter for screening mammogram for malignant neoplasm of breast (principal)

== ENCOUNTER → 2017-07-06 | Outpatient (CLI) | payer BC ==
[2017-07-06 17:51] LABS: BLOOD UREA NITROGEN 22 mg/dl (7-18); CALCIUM 9.4 mg/dl (8.5-10.1); CARBON DIOXIDE 31 mmol/L (21-32); CREATININE 0.94 mg/dl (0.60-1.20); GLUCOSE 107 mg/dl (70-99); POTASSIUM 3.4 mmol/L (3.5-5.1); SODIUM 138 mmol/L (136-145)
[2017-07-07 06:33] LABS: HEMOGLOBIN A1C 5.6 % (4.5-5.6)
== END | disposition home or self-care (01) ==
LOC: C.LABBFT 11:27
PROVIDERS: ATTEND Nurse Practitioner Adult Health
DX: E11.9 Type 2 diabetes mellitus without complications (principal); Z79.4 Long term (current) use of insulin; I10 Essential (primary) hypertension; E78.5 Hyperlipidemia, unspecified

== ENCOUNTER → 2017-07-29 | Outpatient (CLI) | payer BC | END | disposition home or self-care (01) | LOC: C.LABBFT 09:16 | PROVIDERS: ATTEND Nurse Practitioner Adult Health | DX: E87.6 Hypokalemia (principal) ==

== ENCOUNTER → 2017-08-02 | Outpatient (CLI) | payer BC | END | disposition home or self-care (01) | LOC: C.CPL 14:09 | DX: S83.231D Complex tear of medial meniscus, current injury, right knee, subsequent encounter (principal); X58.XXXD Exposure to other specified factors, subsequent encounter ==

== ENCOUNTER → 2017-10-03 | Outpatient (CLI) | payer BC ==
--- NOTE | 2017-10-03 12:40 | DIAGNOSTIC IMAGING REPORT ---
L EXTREMITY NONVASCULAR LIMITED HISTORY: 61 years-old Female M79.89 Nodule of soft tissuePLEASE EVALUATE LEFT AXILLA FOR PALP acute palpable abnormality of the left axilla COMPARISON: None available TECHNIQUE: Multiple real-time sonographic images of the left axilla were obtained assessing grayscale appearance and color flow FINDINGS: Within the region of palpable concern at the left axilla there is an ill-defined lesion which is isoechoic to adjacent subcutaneous fat and is oriented within a parallel orientation to the skin surface, 1.7 x 0.8 x 2.2 cm. No pathologically enlarged lymph nodes or drainable fluid collections. No internal flow within this lesion. IMPRESSION: 2.2 cm lesion of the left axilla suggest subcutaneous lipoma. Correlate with clinical exam. The above report was generated using voice recognition software. It may contain grammatical, syntax or spelling errors. Electronically signed by: Fred Rosales M.D. 10/03/2017 12:39 PM Dictated Date/Time: 10/03/2017 12:37 PM
== END | disposition home or self-care (01) ==
LOC: C.ULTR 12:11
PROVIDERS: ATTEND Nurse Practitioner
DX: M79.89 Other specified soft tissue disorders (principal)

== ENCOUNTER → 2017-10-31 | Outpatient (CLI) | payer BC ==
[2017-10-31 13:41] LABS: HEMOGLOBIN A1C 5.6 % (4.5-5.6)
[2017-10-31 14:01] LABS: ALBUMIN 3.7 gm/dl (3.4-5.0); ALKALINE PHOSPHATASE 126 U/L (45-117); ALT/SGPT 24 U/L (12-78); AST/SGOT 16 U/L (15-37); BLOOD UREA NITROGEN 19 mg/dl (7-18); CALCIUM 9.5 mg/dl (8.5-10.1); CARBON DIOXIDE 27 mmol/L (21-32); CHOLESTEROL 129 mg/dl (0-200); CREATININE 0.97 mg/dl (0.60-1.20); GLUCOSE 98 mg/dl (70-99); LDL CHOLESTEROL CALCULATED 47 mg/dl; POTASSIUM 3.5 mmol/L (3.5-5.1); SODIUM 140 mmol/L (136-145); TOTAL PROTEIN 7.3 gm/dl (6.4-8.2)
== END | disposition home or self-care (01) ==
LOC: C.LABBFT 08:54
PROVIDERS: ATTEND Nurse Practitioner Adult Health
DX: E11.9 Type 2 diabetes mellitus without complications (principal); I10 Essential (primary) hypertension; E78.5 Hyperlipidemia, unspecified

== ENCOUNTER → 2017-11-01 | Outpatient (CLI) | payer BC | END | disposition home or self-care (01) | LOC: C.LABBFT 09:12 | PROVIDERS: ATTEND Nurse Practitioner Adult Health | DX: I10 Essential (primary) hypertension (principal); E78.5 Hyperlipidemia, unspecified; E11.9 Type 2 diabetes mellitus without complications ==